=== PATIENT | female | born 1985 | race Caucasian/White ===

== ENCOUNTER 2020-08-21 09:27 | Day surgery (SDC) | payer BC ==
[~2020-08-21] VITALS: Ht 175.3 cm; Wt 140.8 kg
[2020-08-21 10:18] VITALS: BP 158/60; PULSE 65; TEMP 97
[2020-08-21] MEDS ORDERED: INSLANT SQ (10:23)
[2020-08-21] MEDS ORDERED: INSULIN HUMA100 U/ML SQ (10:23)
[2020-08-21] MEDS ORDERED: GAS-X ULTRA ST180 MG PO (10:24)
[2020-08-21] MEDS ORDERED: TYLENOL 500MG500 MG PO (10:25)
--- NOTE | 2020-08-21 10:45 | NUR ---
The patient answered yes to the first suicide risk question when assessed by this nurse. The nures then opened communication with the patient regarding resources she currently uses which she states are "none". The nurse then encouraged the patient to contact her primary care provider regarding someone she can talk to about these thoughts. The nurse also informed the patient that she will be sent home with a list of local mental health resources that she can reach out to in a time of need.
[2020-08-21] MEDS ORDERED: MOTRIN 200200 MG/TAB PO (10:49)
[2020-08-21 12:00] VITALS: BP 142/57; PULSE 73
--- NOTE | 2020-08-21 12:00 | NUR ---
Patient returns to [facility] per cart after having EGD and colonoscopy. Assisted from cart to recliner with two person assist. Temp 96.2. Warm blankets applied. IV fluids infusing and site is free of redness. Allowed to rest.
[2020-08-21 12:15] VITALS: BP 137/78; PULSE 73
--- NOTE | 2020-08-21 12:15 | NUR ---
Resting and is sipping on diet Pepsi. Denies pain or nausea.
[2020-08-21 12:30] VITALS: BP 157/80; PULSE 73
--- NOTE | 2020-08-21 12:30 | NUR ---
Resting and awaits Dr. Lu to answer questions prior to discharge.
[2020-08-21 12:45] VITALS: BP 167/73; PULSE 71
--- NOTE | 2020-08-21 12:45 | NUR ---
IV discontinued and patient dresses self.
[2020-08-21 13:10] VITALS: BP 142/57; PULSE 73
--- NOTE | 2020-08-21 13:13 | NUR ---
Dr. Lu here and talks with the patient and all questions answered.
--- NOTE | 2020-08-21 13:16 | NUR ---
Dismissed to home driven by spouse and taken to the front door per wheelchair and assisted into vehicle and assisted into vehicle.
== END 2020-08-21 13:16 | disposition home or self-care (01) ==
LOC: SDCO 09:27
DX: K62.1 Rectal polyp (principal); K21.9 Gastro-esophageal reflux disease without esophagitis; K64.1 Second degree hemorrhoids; K92.1 Melena; R19.7 Diarrhea, unspecified; E03.9 Hypothyroidism, unspecified; E11.9 Type 2 diabetes mellitus without complications; F32.9 Major depressive disorder, single episode, unspecified; Z79.4 Long term (current) use of insulin; Z91.040 Latex allergy status; E66.9 Obesity, unspecified; Z68.41 Body mass index [BMI] 40.0-44.9, adult
CPT/HCPCS: J2704; J7030